=== PATIENT | male | born 1950 | race Caucasian/White ===

== ENCOUNTER 2025-09-28 14:03 | Emergency (ER) | payer MEDICARE, OTHER ==
[~2025-09-28] VITALS: Ht 180.3 cm; Wt 107.2 kg
[2025-09-28 14:14] VITALS: BP 155/74; PULSE 60; RESP 16; TEMP 97.1; O2SAT 98
--- NOTE | 2025-09-28 14:37 | Physician Documentation ---
History of Present Illness ~ Chief Complaint: Bite-insect Stated Complaint: SPIDER BITE Time Seen by MD: 14:26 HPI Otherwise healthy he right-hand dominant 75-year-old male who presents to the emergency department with suspected insect bite to the right lateral wrist just proximal ulnar styloid. Developed a bump last night at the subsequently today became erythemic without obvious fluctuance or lymphangitis. Does have reproducible pain with extension of the wrist. Medication Reconciliation Allergies: Uncoded Allergies: BEES (Allergy, Unknown, SWELLING, 09/28/25) Scheduled Doxycycline Monohydrate (Doxycycline Monohydrate), 100 MG PO BID Ibuprofen* (Motrin*), 800 MG PO Q8H Physical Exam Vital Signs: RN Vital Signs have been reviewed: Yes, Temperature: 97.1, Source: Temporal, Heart Rate: 60, Respiratory Rate: 16, BP: 155/74, Pulse Oximetry: 98, Weight: 107.200 Oxygen Flow Rate: 0 General Appearance: alert, WD/WN, mild distress Eyes, Ears, Nose: PERRL/EOMI Neck: normal inspection Cardiovascular: normal peripheral pulses Respiratory: no respiratory distress Chest: no accessory muscle use Extremities: inflammation, other (Reproducible pain with extension of the wrist) Extremities Proximally 3 x 2 cm erythemic just proximal right ulnar styloid without obvious abscess Neurologic: oriented x4 Psychiatric: normal mood/affect Skin: erythema Lymphatic: normal inspection Progress Results/Orders Results/Orders Vital Signs 09/28/25 14:14 Temp 97.1 Pulse 60 Resp 16 B/P (MAP) 155/74 Pulse Ox 98 O2 Flow Rate 0 Medical Decision Making Additional information obtaine: family Findings Examination history warrants outpatient antibiotic administration and anti- inflammatory with close follow up of 48-72 hours. No PE correlation for compartment syndrome or septic wrist. Do not suspect gouty arthritis. No obvious abscess requiring incision and drainage of his point no lymphangitis noted. Differential Dx:Considerations: Include: Allergic reaction, Cellulitis, Contusion, Insect envenomation, Punture wound, Retained foreign body, Other (Acute arthralgia, gout not likely) Departure Disposition: 01 HOME / SELF CARE / HOMELESS Impression: Primary Impression: Insect bites Qualified Codes: S40.861A - Insect bite (nonvenomous) of right upper arm, initial encounter; W57.XXXA - Bitten or stung by nonvenomous insect and other nonvenomous arthropods, initial encounter Condition: Stable Discharge Instructions: Cellulitis, Adult, Insect Bite, Adult, [id number] Additional Instructions: Please begin antibiotic as directed and please keep close follow up. Had wound evaluated for the 72 hours and/or return to the emergency department if symptoms worsen. Thank you for visiting emergency department [facility]. Referrals: NO PRIMARY CARE PROVIDER (PCP) Prescriptions Ibuprofen* (Motrin*) 400 Mg Tablet 800 MG PO Q8H for 10 Days, #30 TAB Prov: JEANNE MOLINA 09/28/25 Doxycycline Monohydrate (Doxycycline Monohydrate) 100 Mg Capsule 100 MG PO BID, #20 CAP may sub doxycycline hyclate or azithromycin z-pack as prescribed Prov: JEANNE MOLINA 09/28/25 Education Educated: Patient Educated regarding: diagnosis, treatment, prognosis, need for follow up Signature Scribe Signature: . Attestation: . JEANNE MOLINA Sep 28, 2025 14:37
[2025-09-28] MEDS ORDERED: IBUP-1984 PO (14:42)
[2025-09-28] MEDS ORDERED: DOXY100C43 PO (14:42)
== END 2025-09-28 14:55 | disposition home or self-care (01) ==
LOC: ER 14:05
DX: S60.861A Insect bite (nonvenomous) of right wrist, initial encounter (principal); Z79.899 Other long term (current) drug therapy; W57.XXXA Bitten or stung by nonvenomous insect and other nonvenomous arthropods, initial encounter; Y93.89 Activity, other specified; Y92.89 Other specified places as the place of occurrence of the external cause; Y99.8 Other external cause status
CPT/HCPCS: 99283